=== PATIENT | female | born 1955 | race Caucasian/White ===

== ENCOUNTER 2024-04-01 10:13 | Inpatient (IN) ==
[2024-04-01 11:03] LABS: ABS Basophils 0.1 10^3/uL (0.0-0.1); ABS Lymphocytes 1.3 10^3/uL (1.0-4.8); ABS Monocytes 0.6 10^3/uL (0.0-0.9); ABS Neutrophils 14.1 10^3/uL (1.5-7.6); ABS Nucleated RBC 0.01 10^3/ul; Eosinophil % 0.1 %; Hematocrit 47.8 % (35-45); Hemoglobin 15.6 g/dL (11.5-14.3); Lymphocyte % 7.8 %; Mean Corpuscular Hemoglobin 31.3 pg (27-33); Mean Corpuscular Hgb Conc 32.7 g/dL (31-36); Mean Corpuscular Volume 95.7 fL (80-97); Mean Platelet Volume 8.5 fL (7.5-11.2); Nucleated Red Blood Cells % 0.1 %/100WBC (0.0-0.8); Platelet Count 299 10^3/uL (150-450); Red Blood Count 4.99 10^6/uL (3.63-4.92); Red Cell Distribution Width 15.4 % (12-17); White Blood Count 16.1 10^3/uL (3.8-11.8)
[2024-04-01 11:23] LABS: Activated Partial Thrombo Time 29.8 seconds (26.0-38.0); INR 1.4 (0.85-1.14)
[2024-04-01 11:53] LABS: Albumin 3.8 g/dL (3.5-5.7); Albumin/Globulin Ratio 1.7 (1-3); Calcium 8.9 mg/dL (8.6-10.3); Creatinine, Serum 0.96 mg/dL (0.51-0.95); Globulin 2.2 g/dL (2-4); Magnesium 1.9 mg/dL (1.9-2.7); Potassium 4.6 mmol/L (3.5-5.0)
[2024-04-01 12:02] LABS: TSH Ultra Thyroid Stim Horm 2.39 mcIU/mL (0.34-5.60)
[2024-04-01 12:34] LABS: High Sensitivity Troponin 1 Hr 94 pg/mL (<15)
[2024-04-01] MEDS: Furosemide 40 mg/4 ml IV VIAL IV SLOW PU ONE (13:34)
[2024-04-01] MEDS: cefTRIAXone 1 gm/50 mL D5W 1 GM/50 ML BAG IV ONE (13:38)
[2024-04-01 14:14] LABS: Albumin 3.8 g/dL (3.5-5.7); Albumin/Globulin Ratio 1.5 (1-3); Calcium 8.8 mg/dL (8.6-10.3); Creatinine, Serum 0.97 mg/dL (0.51-0.95); Globulin 2.5 g/dL (2-4); Potassium 4.5 mmol/L (3.5-5.0); Total Protein 6.3 g/dL (6.4-8.9); eGFR CKD-EPI 63.3 (>60)
[2024-04-01] MEDS: Heparin 5000 UNITS/ML 1 mL VIAL IV SCH (14:19)
[2024-04-01] MEDS: Heparin DRIP 25,000 UNITS BAG 25,000 UNITS/250 ML BAG IV SCH (14:20)
[2024-04-01 14:25] LABS: C Reactive Protein 16.61 mg/L (<8.01)
[2024-04-01] MEDS ORDERED: Dextrose 50% Syringe 50 ml 25 GM/50 ML SYRINGE IV PUSH PRN (14:51)
[2024-04-01] MEDS ORDERED: Senna TAB 8.6 mg TAB PO PRN (15:44)
[2024-04-01] MEDS: Metoprolol Tartrate 5 mg VIAL 5 ml VIAL (1 mg/ml) IV ONE (15:52)
[2024-04-01] MEDS: Azithromycin 500 mg/250 ml NS 500 MG/250 ML BAG IVPB ONE (16:58)
[2024-04-01 18:21] LABS: Ferritin 88.6 ng/mL (11-307)
[2024-04-01] MEDS: Ondansetron 4 mg VIAL 2 MG/ML 2 ml VIAL IV PRN (18:24)
[2024-04-01 18:25] LABS: Folate 16.36 ng/mL (5.90-24.80)
[2024-04-02] MEDS: Polyethylene Glycol 3350 17 GM PACKET PO SCH (07:31)
[2024-04-02 08:20] LABS: ABS Basophils 0.1 10^3/uL (0.0-0.1); ABS Eosinophils 0.2 10^3/uL (0.0-0.5); ABS Lymphocytes 1.7 10^3/uL (1.0-4.8); ABS Monocytes 0.8 10^3/uL (0.0-0.9); ABS Neutrophils 9.5 10^3/uL (1.5-7.6); ABS Nucleated RBC 0.01 10^3/ul; Eosinophil % 1.7 %; Hematocrit 44.4 % (35-45); Hemoglobin 14.9 g/dL (11.5-14.3); Mean Corpuscular Hgb Conc 33.5 g/dL (31-36); Mean Corpuscular Volume 95.6 fL (80-97); Mean Platelet Volume 8.4 fL (7.5-11.2); Nucleated Red Blood Cells % 0.1 %/100WBC (0.0-0.8); Platelet Count 278 10^3/uL (150-450); Red Blood Count 4.65 10^6/uL (3.63-4.92); Red Cell Distribution Width 15.4 % (12-17); White Blood Count 12.4 10^3/uL (3.8-11.8)
[2024-04-02 09:00] LABS: Albumin 3.6 g/dL (3.5-5.7); Albumin/Globulin Ratio 1.7 (1-3); Calcium 8.7 mg/dL (8.6-10.3); Creatinine, Serum 0.94 mg/dL (0.51-0.95); Globulin 2.1 g/dL (2-4); HDL Cholesterol 27.7 mg/dL; Potassium 4.1 mmol/L (3.5-5.0); Total Bilirubin 0.7 mg/dL (0.2-1.0); Total Protein 5.7 g/dL (6.4-8.9); eGFR CKD-EPI 65.7 (>60)
[2024-04-02] MEDS: Sulfur Hexaflouride MICROSPHR 25 MG VIAL IV PRN (09:31)
[2024-04-02] MEDS: Furosemide 40 mg/4 ml IV VIAL IV SLOW PU ONE (09:39)
[2024-04-02 10:26] LABS: Urine Appearance Clear; Urine Bilirubin Negative (Negative); Urine Blood Negative (Negative); Urine Color Light-Yellow; Urine Glucose Negative (Negative); Urine Ketones Negative (Negative); Urine Nitrite Negative (Negative); Urine Protein Trace (Negative); Urine Specific Gravity 1.013 (1.002-1.030); Urine Urobilinogen Negative (Negative); Urine pH 5.5 (5.0-8.0)
[2024-04-02 10:57] LABS: Urine Bacteria Absent /HPF (Absent); Urine Red Blood Cell Absent /HPF (0-Trace); Urine Squamous Epithelial Cell Present /HPF (Absent); Urine Transitional Epithelial Present /HPF (Absent); Urine White Blood Cell 2+(11-20/hpf) /HPF (0-Trace)
[2024-04-02] MEDS ORDERED: Midazolam 5 mg/5 ml VIAL 1 mg/ml 5 ml VIAL (5 mg) ONE (13:15)
[2024-04-02] MEDS ORDERED: Lidocaine 1% VIAL 10 MG/ML 30 ML VIAL ONE (13:15)
[2024-04-02] MEDS ORDERED: VERAPAMIL 2.5 MG/ML 2 ML VIAL ** 5 mg/2 ml ONE (13:15)
[2024-04-02] MEDS ORDERED: fentaNYL 100 mcg/2 ml 50 MCG/ML VIAL ONE (13:15)
[2024-04-02] MEDS ORDERED: Heparin 1,000 UNIT/ML 10 ml (10,000 UNITS) CATHLAB/DIALYSIS ONE (13:15)
[2024-04-02] MEDS ORDERED: nitroGLYCERIN DRIP 50,000 MCG/250 ML BTL ONE (13:16)
[2024-04-02] MEDS ORDERED: Heparin 2 UNITS/ML 1000 mls 2,000 ML IV ONE (13:16)
[2024-04-02] MEDS ORDERED: Iohexol 350 (CONTRAST) 100 ML PAK IV ONE (13:16)
[2024-04-02 15:18] LABS: POC SO2 63 %
[2024-04-02 16:44] LABS: Hepatitis B Surface Antigen Nonreactive (Nonreactive)
[2024-04-02 16:49] LABS: Hepatitis A Ab IgM Negative (Negative)
[2024-04-02 16:50] LABS: Hepatitis B Core IgM Nonreactive (Nonreactive)
[2024-04-02 16:57] LABS: POC SO2 62 %
[2024-04-02 16:57] LABS: POC SO2 96 %
[2024-04-02 17:02] LABS: Hepatitis C Antibody Negative (Negative)
[2024-04-02] MEDS: Furosemide 40 mg/4 ml IV VIAL IV ONE (17:42)
[2024-04-02] MEDS: cefTRIAXone 1 gm/50 mL D5W 1 GM/50 ML BAG IV SCH (17:48)
[2024-04-02] MEDS: Azithromycin 500 mg/250 ml NS 500 MG/250 ML BAG IVPB SCH (17:56)
[2024-04-02] MEDS ORDERED: Heparin DRIP 25,000 UNITS BAG 25,000 UNITS/250 ML BAG IV SCH (18:30)
[2024-04-02 18:53] LABS: ABS Basophils 0.1 10^3/uL (0.0-0.1); ABS Eosinophils 0.2 10^3/uL (0.0-0.5); ABS Lymphocytes 1.6 10^3/uL (1.0-4.8); ABS Monocytes 0.6 10^3/uL (0.0-0.9); ABS Neutrophils 11.5 10^3/uL (1.5-7.6); Eosinophil % 1.6 %; Hematocrit 45.6 % (35-45); Hemoglobin 14.8 g/dL (11.5-14.3); Lymphocyte % 11.4 %; Mean Corpuscular Hemoglobin 31.1 pg (27-33); Mean Corpuscular Hgb Conc 32.4 g/dL (31-36); Mean Corpuscular Volume 96.1 fL (80-97); Mean Platelet Volume 8.2 fL (7.5-11.2); Platelet Count 255 10^3/uL (150-450); Red Blood Count 4.75 10^6/uL (3.63-4.92); Red Cell Distribution Width 15.3 % (12-17); White Blood Count 14.1 10^3/uL (3.8-11.8)
[2024-04-02] MEDS: Iron Sucrose 200 MG in NS 0.9% 100 ml BAG 100 ML IVPB SCH (19:09)
[2024-04-02 19:43] LABS: Creatinine, Serum 1.01 mg/dL (0.51-0.95); eGFR CKD-EPI 60.3 (>60)
[2024-04-02] MEDS: Heparin DRIP 25,000 UNITS BAG 25,000 UNITS/250 ML BAG IV SCH (19:56)
[2024-04-02] MEDS ORDERED: Heparin 5000 UNITS/ML 1 mL VIAL IV SCH (20:00)
[2024-04-03 09:09] LABS: ABS Basophils 0.1 10^3/uL (0.0-0.1); ABS Eosinophils 0.2 10^3/uL (0.0-0.5); ABS Lymphocytes 1.2 10^3/uL (1.0-4.8); ABS Monocytes 0.6 10^3/uL (0.0-0.9); ABS Neutrophils 10.7 10^3/uL (1.5-7.6); ABS Nucleated RBC 0.02 10^3/ul; Eosinophil % 1.8 %; Hemoglobin 14.8 g/dL (11.5-14.3); Lymphocyte % 9.2 %; Mean Corpuscular Hemoglobin 31.4 pg (27-33); Mean Corpuscular Hgb Conc 32.8 g/dL (31-36); Mean Corpuscular Volume 95.7 fL (80-97); Nucleated Red Blood Cells % 0.1 %/100WBC (0.0-0.8); Platelet Count 261 10^3/uL (150-450); Red Cell Distribution Width 15.2 % (12-17); White Blood Count 12.8 10^3/uL (3.8-11.8)
[2024-04-03 09:27] LABS: Activated Partial Thrombo Time 93.6 seconds (26.0-38.0)
[2024-04-03 10:00] LABS: Albumin 3.3 g/dL (3.5-5.7); Albumin/Globulin Ratio 1.7 (1-3); Calcium 8.3 mg/dL (8.6-10.3); Creatinine, Serum 0.87 mg/dL (0.51-0.95); Direct Bilirubin 0.1 mg/dL (0.03-0.18); Indirect Bilirubin 0.5 mg/dL (0.3-1.0); Magnesium 1.8 mg/dL (1.9-2.7); Potassium 3.4 mmol/L (3.5-5.0); Total Bilirubin 0.6 mg/dL (0.2-1.0); Total Protein 5.3 g/dL (6.4-8.9); eGFR CKD-EPI 72.1 (>60)
[2024-04-03] MEDS: Potassium Chlor 20 meq TAB.ER PO ONE ×2 (11:34→15:07)
[2024-04-03 14:00] VITALS: BP 118/79
[2024-04-03 16:39] LABS: Calcium 8.6 mg/dL (8.6-10.3); Creatinine, Serum 0.85 mg/dL (0.51-0.95); eGFR CKD-EPI 74.1 (>60)
== END 2024-04-03 17:39 | disposition short-term general hospital (02) | DRG 871 ==
LOC: ED 10:13 → EDHOLD 10:13 → OBSVTOIN 13:58 → MEDTELE 15:01
PROVIDERS: ADMIT Internal Medicine; ATTEND Internal Medicine